=== PATIENT | female | born 1975 | race Two or more races ===

== ENCOUNTER 2022-06-26 08:54 | Emergency (ER) | payer MEDICAID, OTHER ==
[~2022-06-26] VITALS: Ht 157.5 cm; Wt 98.7 kg
[2022-06-26 09:28] VITALS: BP 132/89
[2022-06-26] MEDS ORDERED: IBUP800T27 PO (10:21)
[2022-06-26] MEDS ORDERED: AMOX875T3 PO (10:21)
== END 2022-06-26 10:39 | disposition home or self-care (01) ==
LOC: ER 08:54
DX: G44.209 Tension-type headache, unspecified, not intractable (principal); H66.91 Otitis media, unspecified, right ear
CPT/HCPCS: 70450

== ENCOUNTER → 2024-02-16 | Outpatient (CLI) | payer MEDICAID ==
[~2024-02-16] VITALS: Ht 160 cm; Wt 97.5 kg
[~2024-02-16] MED LIST: AMOX875T3 PO; IBUP-1456 PO
== END | disposition home or self-care (01) ==
LOC: Rad HDHVI 08:51
PROVIDERS: ATTEND Internal Medicine Cardiovascular Disease
DX: E11.9 Type 2 diabetes mellitus without complications (principal); R06.02 Shortness of breath; R07.89 Other chest pain; E78.00 Pure hypercholesterolemia, unspecified; R42 Dizziness and giddiness; I80.3 Phlebitis and thrombophlebitis of lower extremities, unspecified
CPT/HCPCS: 78452; 93017; 96374; A9500